=== PATIENT | male | born 1965 | race American Indian/Alaskan Native ===

== ENCOUNTER 2016-11-07 22:34 | Emergency (ER) | payer SELFPAY ==
--- NOTE | 2016-11-07 23:10 | Cat Scan Report ---
FINAL REPORT EXAM: CT HEAD/BRAIN WO CON HISTORY: neuro deficits \T\lt; 6hrs or sx present upon awakening TECHNIQUE: Noncontrast serial axial images from skull base to vertex. PRIORS: None. FINDINGS: There is no mass effect or midline shift. There are no abnormal intra or extra-axial fluid collections. Cortical sulci and lateral ventricles are within normal limits for size and configuration. Basilar cisterns are patent. No acute intracranial hemorrhage is identified. There is an asymmetric hypodense focus in the periventricular white matter adjacent to the body of the right lateral ventricle. Areas of relative hypodensity are seen in white matter of the cerebral hemispheres, bilaterally. Atherosclerotic changes are noted. Visualized paranasal sinuses and mastoid air cells are well aerated. No acute osseous abnormality is identified. IMPRESSION: 1. No abnormal mass or acute intracranial hemorrhage is identified. 2. There is evidence of prior infarct in the periventricular white matter adjacent to the body of the right lateral ventricle. Chronicity is uncertain. There are currently no studies available for direct comparison. 3. Areas of relative hypodensity are seen in the white matter of the cerebral hemispheres. This is a nonspecific finding. It may be related to chronic ischemic change from small vessel disease. 4. If there is concern for acute or subacute infarct, consider MRI with diffusion-weighted imaging for further evaluation.
[2016-11-07 23:40] LABS: BUN/Creatinine Ratio 16.66; Blood Urea Nitrogen 10 mg/dL (9-20); Carbon Dioxide 31 mmol/L (22-30); Glucose 154 mg/dL (75-100)
[2016-11-07 23:41] LABS: Anion Gap 18 mmol/L; Chloride 95.8 mmol/L (98-107); Potassium 3.1 mmol/L (3.6-5.0); Sodium 142 mmol/L (137-145)
[2016-11-07 23:55] LABS: Basophils % (Auto) 0.3 % (0.0-1.8); Eosinophils % (Auto) 1.3 % (0.0-4.3); Hematocrit 42.3 % (35.5-45.6); Hemoglobin 14.4 gm/dl (11.8-15.2); Mean Corpuscular HGB Conc 34 % (32-34); Mean Corpuscular Hemoglobin 32 pg (28-32); Mean Corpuscular Volume 94 fl (84-94); Platelet Count 227 K/mm3 (140-440); Red Blood Count 4.51 M/mm3 (3.65-5.03); Red Cell Distribution Width 13.9 % (13.2-15.2); White Blood Count 9.3 K/mm3 (4.5-11.0)
[2016-11-08 00:01] LABS: INR 0.98 (0.87-1.13)
[2016-11-08 00:02] LABS: Partial Thromboplastin Time 31.5 Sec. (24.2-36.6)
[2016-11-08] MEDS ORDERED: REGLAN IV ONE (00:02)
[2016-11-08] MEDS ORDERED: BENADRYL IV ONE (00:02)
[2016-11-08] MEDS ORDERED: MAGNESIUM SULFATE 2GM/50ML 2 GM/50 ML BAG IV ONE (00:02)
[2016-11-08] MEDS ORDERED: DILAUDID IV ONE (00:02)
[2016-11-08] MEDS ORDERED: NACL 0.9% 1000 ML 1,000 ML IV ONE (00:02)
--- NOTE | 2016-11-08 00:05 | Emergency Department Report ---
ED General Adult HPI - General Chief complaint: Headache Stated complaint: ABRAMS Time Seen by Provider: 11/07/16 23:46 Source: patient, RN notes reviewed, old records reviewed Mode of arrival: Ambulatory Limitations: No Limitations - History of Present Illness Initial comments: This is a 51-year-old male. He is previously unknown to me. Patient has a medical history of stroke, diabetes, hypertension. The patient had a CT angiogram performed at [facility] august 21 2016. The angiogram was negative for occlusion, aneurysm, dissection. It did note a left proximal cavernous ICA likely atherosclerotic related short segment 50% stenosis. 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 The patient presents to the ER with a headache. The headache has been present for over a week. It is in the right temporal region, and right neck. The headache is not sudden or thunderclap in nature. It did not reach maximal intensity within an hour. It is similar to prior headaches only more intense. Patient reports the headache is typically worse at night. There is no neck stiffness. No fevers. No sore throat. No loss of vision. No vomiting. No abdominal pain. No chest pain. -: Gradual Location: head, neck Quality: other (as per history of present illness) Consistency: other (as per history of present illness) Improves with: other (History of present illness) Worsens with: other (as per history of present illness) Associated Symptoms: headaches - Related Data Previous Rx's Medication Instructions Recorded Last Taken Type Magnesium Oxide [Mag-Ox] 400 mg PO QDAY #10 tablet 11/08/16 Unknown Rx Potassium Chloride [Klor-Con] 20 meq PO QDAY #10 packet 11/08/16 Unknown Rx Allergies Allergy/AdvReac Type Severity Reaction Status Date / Time No Known Allergies Allergy Verified 11/07/16 22:39 ED Review of Systems ROS: Stated complaint: ABRAMS Other details as noted in HPI Constitutional: denies: fever Eyes: denies: eye discharge ENT: denies: epistaxis Respiratory: denies: cough Cardiovascular: denies: chest pain Gastrointestinal: denies: abdominal pain Genitourinary: as per HPI Musculoskeletal: as per HPI Skin: as per HPI Neurological: headache. denies: weakness, numbness, paresthesias, confusion, abnormal gait, vertigo ED Past Medical Hx - Past Medical History Previous Medical History?: Yes Hx Hypertension: Yes Hx CVA: Yes Hx Diabetes: Yes - Surgical History Past Surgical History?: No - Social History Smoking Status: Current Every Day Smoker Substance Use Type: Alcohol - Medications Home Medications: Home Medications Medication Instructions Recorded Confirmed Last Taken Type Magnesium Oxide [Mag-Ox] 400 mg PO QDAY #10 tablet 11/08/16 Unknown Rx Potassium Chloride [Klor-Con] 20 meq PO QDAY #10 packet 11/08/16 Unknown Rx ED Physical Exam - General Limitations: No Limitations General appearance: alert, in no apparent distress - Head Head exam: Present: atraumatic, normocephalic - Eye Eye exam: Present: normal appearance, PERRL, EOMI, other (visual acuity intact to finger counting, color perception, reading at a close distance). Absent: nystagmus - ENT ENT exam: Present: normal exam, normal orophraynx, mucous membranes moist, normal external ear exam - Neck Neck exam: Present: normal inspection, full ROM (negative jolt accentuation test ). Absent: tenderness, meningismus - Respiratory Respiratory exam: Present: normal lung sounds bilaterally. Absent: respiratory distress, wheezes, rales, rhonchi, stridor, chest wall tenderness, accessory muscle use, decreased breath sounds, prolonged expiratory - Cardiovascular Cardiovascular Exam: Present: regular rate, normal rhythm, normal heart sounds. Absent: bradycardia, tachycardia, irregular rhythm, systolic murmur, diastolic murmur, rubs, gallop - GI/Abdominal GI/Abdominal exam: Present: soft, normal bowel sounds. Absent: distended, tenderness, guarding, rebound, rigid, pulsatile mass - Rectal Rectal exam: Present: deferred - Extremities Exam Extremities exam: Present: normal inspection, full ROM, normal capillary refill. Absent: tenderness, pedal edema, joint swelling, calf tenderness - Back Exam Back exam: Present: normal inspection, full ROM. Absent: tenderness, CVA tenderness (R), CVA tenderness (L), muscle spasm, paraspinal tenderness, vertebral tenderness - Neurological Exam Neurological exam: Present: alert, oriented X3, normal gait, other (Extraocular movements intact. Tongue midline. No facial droop. Facial sensation intact to light touch in the V1, V2, V3 distribution bilaterally. 5 and 5 strength in 4 extremities.. Sensation is intact to light touch in 4 extremities.). Absent : motor sensory deficit - Psychiatric Psychiatric exam: Present: normal affect, normal mood - Skin Skin exam: Present: warm, dry, intact, normal color. Absent: rash ED Course Vital Signs 11/07/16 11/07/16 11/07/16 22:39 23:01 23:10 Temperature 98.3 F Pulse Rate 73 71 83 Respiratory 22 19 Rate Blood Pressure 161/96 151/78 Blood Pressure 151/78 [Left] O2 Sat by Pulse 100 100 Oximetry 11/07/16 11/07/16 11/07/16 23:20 23:30 23:40 Temperature Pulse Rate 79 73 76 Respiratory 13 15 22 Rate Blood Pressure 151/78 151/78 151/78 Blood Pressure [Left] O2 Sat by Pulse 100 100 97 Oximetry 11/07/16 11/08/16 11/08/16 23:50 00:00 00:10 Temperature Pulse Rate 71 71 74 Respiratory 14 14 11 L Rate Blood Pressure 151/78 163/87 163/87 Blood Pressure [Left] O2 Sat by Pulse 100 98 100 Oximetry 11/08/16 00:20 Temperature Pulse Rate 77 Respiratory 13 Rate Blood Pressure 163/87 Blood Pressure [Left] O2 Sat by Pulse 98 Oximetry - Reevaluation(s) Reevaluation #1: 11/08/16 00:25 differential diagnosis: Migraine headache, cluster headache, tension headache, arterial insufficiency Assessment and plan: 51-year-old male with nonspecific right-sided headache as social with neck discomfort. He is afebrile with reassuring vital signs, has a GCS of 15, with an NIH score is 0, no obvious visual field cuts on my examination, visual acuity intact, neck is supple, and unremarkable pharyngeal examination. Given his nonspecific CT scan, clinical history, we will obtain a CT angiogram to exclude dissection, thrombus. By the patient's history, I do not suspect subarachnoid hemorrhage, as the headache is not sudden or thunderclap in nature, it is primarily nocturnal. 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 He is following up with her primary care doctor for this as an outpatient. Laboratory studies are unremarkable with exception of mild hypokalemia. A noncontrast CT scan was negative for acute disease. given history I am not concerned about recurrent ischemic cva. 11/08/16 00:28 Reevaluation #2: 11/08/16 02:07 patient is noted to be hypokalemic and hypomagnesemic. These were repleted. CT angiogram negative for significant disease disease. Patient resting comfortably. Repeat neurologic examination unremarkable. The patient feels improved. The patient will be discharged with magnesium supplementation, potassium supplementation, instructions to follow-up with his private neurologist within the next week. Return precautions are reviewed. 11/08/16 02:25 ED Medical Decision Making - Lab Data Result diagrams: 11/07/16 23:09 11/07/16 23:09 Vital Signs 11/07/16 11/07/16 22:39 23:10 Temperature 98.3 F Pulse Rate 73 75 Respiratory 22 14 Rate Blood Pressure 161/96 Blood Pressure 151/78 [Left] O2 Sat by Pulse 100 100 Oximetry Lab Results 11/07/16 11/07/16 11/07/16 Range/Units 23:09 23:09 23:09 WBC 9.3 (4.5-11.0) K/mm3 RBC 4.51 (3.65-5.03) M/mm3 Hgb 14.4 (11.8-15.2) gm/dl Hct 42.3 (35.5-45.6) % MCV 94 (84-94) fl MCH 32 (28-32) pg MCHC 34 (32-34) % RDW 13.9 (13.2-15.2) % Plt Count 227 (140-440) K/mm3 Lymph % (Auto) 46.4 H (13.4-35.0) % Yates % (Auto) 7.2 (0.0-7.3) % Eos % (Auto) 1.3 (0.0-4.3) % Baso % (Auto) 0.3 (0.0-1.8) % Lymph # 4.3 (1.2-5.4) K/mm3 Yates # 0.7 (0.0-0.8) K/mm3 Eos # 0.1 (0.0-0.4) K/mm3 Baso # 0.0 (0.0-0.1) K/mm3 Seg Neutrophils % 44.8 (40.0-70.0) % Seg Neutrophils # 4.2 (1.8-7.7) K/mm3 PT 12.9 (12.2-14.9) Sec. INR 0.98 (0.87-1.13) APTT 31.5 (24.2-36.6) Sec. Thrombin Time (15.1-19.6) Sec. Sodium 142 (137-145) mmol/L Potassium 3.1 L (3.6-5.0) mmol/L Chloride 95.8 L (98-107) mmol/L Carbon Dioxide 31 H (22-30) mmol/L Anion Gap 18 mmol/L BUN 10 (9-20) mg/dL Creatinine 0.6 L (0.8-1.5) mg/dL Estimated GFR > 60 ml/min BUN/Creatinine Ratio 16.66 % Glucose 154 H (75-100) mg/dL Calcium 9.0 (8.4-10.2) mg/dL Troponin T < 0.010 (0.00-0.029) ng/mL 11/07/16 Range/Units 23:09 WBC (4.5-11.0) K/mm3 RBC (3.65-5.03) M/mm3 Hgb (11.8-15.2) gm/dl Hct (35.5-45.6) % MCV (84-94) fl MCH (28-32) pg MCHC (32-34) % RDW (13.2-15.2) % Plt Count (140-440) K/mm3 Lymph % (Auto) (13.4-35.0) % Yates % (Auto) (0.0-7.3) % Eos % (Auto) (0.0-4.3) % Baso % (Auto) (0.0-1.8) % Lymph # (1.2-5.4) K/mm3 Yates # (0.0-0.8) K/mm3 Eos # (0.0-0.4) K/mm3 Baso # (0.0-0.1) K/mm3 Seg Neutrophils % (40.0-70.0) % Seg Neutrophils # (1.8-7.7) K/mm3 PT (12.2-14.9) Sec. INR (0.87-1.13) APTT (24.2-36.6) Sec. Thrombin Time 14.1 L (15.1-19.6) Sec. Sodium (137-145) mmol/L Potassium (3.6-5.0) mmol/L Chloride (98-107) mmol/L Carbon Dioxide (22-30) mmol/L Anion Gap mmol/L BUN (9-20) mg/dL Creatinine (0.8-1.5) mg/dL Estimated GFR ml/min BUN/Creatinine Ratio % Glucose (75-100) mg/dL Calcium (8.4-10.2) mg/dL Troponin T (0.00-0.029) ng/mL - EKG Data -: EKG Interpreted by Me EKG shows normal: sinus rhythm, axis, intervals, QRS complexes, ST-T waves - EKG Data When compared to previous EKG there are: previous EKG unavailable - Radiology Data Radiology results: report reviewed, image reviewed Noncontrast CT scan: No abnormal mass or intracranial hemorrhage noted. Evidence of prior infarct noted in the periventricular white matter adjacent to the body of the right lateral ventricle. Chronicity is uncertain. Areas of hypodensity noted in the white matter of the cerebral hemispheres, nonspecific finding. May related to chronic ischemic change small vessel disease. CT angiogram negative for acute disease, chronic findings noted Critical care attestation.: If time is entered above; I have spent that time in minutes in the direct care of this critically ill patient, excluding procedure time. ED Disposition Clinical Impression: Headache, Hypokalemia, Hypomagnesemia Disposition: DISCHARGED TO HOME OR SELFCARE Is pt being admited?: No Does the pt Need Aspirin: No Condition: Stable Instructions: Acute Headache (ED) Additional Instructions: Follow up with your primary neurologist within the next 7-[address] scans did not demonstrate any new findings when compared to her old CT scans. Take the potassium and magnesium supplementation as directed. Take acetaminophen or ibuprofen as needed [id number] for pain. If you take metformin, do not take it for the next 48 hours. Return to the ER right away with new pain, worsened pain, migration of pain, fever, chills, confusion, intractable nausea or vomiting, extremity weakness, extremity numbness, bladder or bowel retention/incontinence. Prescriptions: Magnesium Oxide [Mag-Ox] 400 mg PO QDAY #10 tablet Potassium Chloride [Klor-Con] 20 meq PO QDAY #10 packet Referrals: PRIMARY CARE, [Primary Care Provider] - 3-5 Days KOZINN,TYSON A, MD [Staff Physician] - 3-5 Days CASSANDRA JEAN MD [Staff Physician] - 3-5 Days
[2016-11-08] MEDS ORDERED: NACL ONE (00:17)
[2016-11-08] MEDS ORDERED: K-DUR PO ONE (00:21)
[2016-11-08] MEDS: KCL 10MEQ/100ML 10 MEQ/100 ML BAG IV SCH ×2 (01:16→02:35)
[2016-11-08 01:23] VITALS: BP 163/87
--- NOTE | 2016-11-08 01:49 | Cat Scan Report ---
FINAL REPORT PROCEDURE: CT ANGIO HEAD TECHNIQUE: Computerized tomographic angiography of the head was performed after the IV injection of iodinated nonionic contrast including image processing. The image data was postprocessed using 2-dimensional multiplanar reformatted (MPR) and 3-dimensional (MIP and/or volume rendered) techniques. HISTORY: chacon hx of cva COMPARISON: No prior studies are available for comparison. FINDINGS: Cerebrum: No evidence of hemorrhage, acute ischemia or mass. Cerebellum: No evidence of hemorrhage, acute ischemia or mass. Subarachnoid spaces and ventricles: Normal. Intracranial vessels: Carotid siphon: Normal. Anterior cerebral: There is an azygos anterior cerebral artery. This is a normal variation. Middle cerebral: Normal. Posterior cerebral:Normal. Vertebral arteries including basilar: The left vertebral artery is dominant. Aneurysms: None. Dural sinuses: Normal. IMPRESSION: There is no intracranial arterial stenosis, thrombosis, dissection or aneurysm. There is no vascular malformation. The dural sinuses are patent.
--- NOTE | 2016-11-08 01:52 | Cat Scan Report ---
FINAL REPORT PROCEDURE: CT ANGIO NECK TECHNIQUE: Computerized tomographic angiography of the neck was performed after the IV injection of iodinated nonionic contrast including image processing. The image data was postprocessed using 2-dimensional multiplanar reformatted (MPR) and 3-dimensional (MIP and/or volume rendered) techniques. HISTORY: chacon hx of cva COMPARISON: No prior studies are available for comparison. Note: Assessment of carotid artery stenosis is based on measurement of the distal internal carotid artery diameter as the denominator for stenosis calculations and the [place] Symptomatic Carotid Endarterectomy Trial (NASCET) stenosis criteria . CPT 3100F FINDINGS: Sinuses: Normal . Non vascular cervical structures: There is a subcutaneous cyst in the left submandibular region measuring 18 x 23 millimeters.. Aortic arch: Normal . Right carotid artery: Normal . Left carotid artery: There is calcified plaque at the left carotid bulb. There is no significant stenosis.. Vertebral arteries: The left vertebral artery is dominant. The right vertebral artery is small in caliber but patent.. IMPRESSION: There is calcified plaque at the left carotid bulb without stenosis. There is no carotid dissection. There is no thrombosis. The left vertebral artery is dominant.
== END 2016-11-08 02:36 | disposition home or self-care (01) ==
LOC: ED 22:34
DX: R51 Headache (principal); E87.6 Hypokalemia; E83.42 Hypomagnesemia; I10 Essential (primary) hypertension; E11.9 Type 2 diabetes mellitus without complications; F17.200 Nicotine dependence, unspecified, uncomplicated; Z86.73 Personal history of transient ischemic attack (TIA), and cerebral infarction without residual deficits
CPT/HCPCS: 36415; 70450; 70496; 70498; 80048; 82962; 83735; 84484; 85025; 85610; 85670; 85730; 93005; 93010; 96361; 96374; 96375; 99285; J1170; J1200; J2765; J2930; J3475; J3480; J7030; Q9967

== ENCOUNTER 2022-02-25 10:19 | Emergency (ER) | payer SELFPAY ==
[2022-02-25 13:27] LABS: Hematocrit 36.8 % (35.5-45.6); Hemoglobin 12.6 gm/dl (11.8-15.2); Mean Corpuscular HGB Conc 34 % (32-34); Mean Corpuscular Volume 93 fl (84-94); Platelet Count 250 K/mm3 (140-440); Red Blood Count 3.97 M/mm3 (3.65-5.03); Red Cell Distribution Width 14.7 % (13.2-15.2)
[2022-02-25 13:43] LABS: Alanine Aminotransferase 11 units/L (7-56); Albumin 4.4 g/dL (3.9-5); Blood Urea Nitrogen 10 mg/dL (9-20); Calcium 9.3 mg/dL (8.4-10.2); Hemolysis Index 15
[2022-02-25 13:48] LABS: BUN/Creatinine Ratio 14
--- NOTE | 2022-02-25 14:56 | Ultrasound Report ---
LIMITED RUQ ABDOMINAL ULTRASOUND INDICATION: ABD PAIN. COMPARISON: No relevant prior imaging study available. FINDINGS: Pancreas: Visualized portions show no significant abnormality. Abdominal Aorta: No significant abnormality. IVC: No significant abnormality. Liver: The liver measures 14.3 cm in length. No significant abnormality. Normal hepatopedal blood fl ow in the main portal vein. Gallbladder: No significant abnormality. Bile ducts: There is mild dilatation of the common bile duct. Common bile duct measures 7 mm. Right kidney: The right kidney measures 10.3 cm in length. The right kidney is slightly echogenic. Th ere is a 2.9 cm cyst with thin internal septation near the lower pole. No hydronephrosis or mass.. Free fluid: None. Additional Findings: None. IMPRESSION: The common bile duct is mildly dilated measuring 7 mm but no cholelithiasis is appreciated. If choled ocholithiasis is suspected, MRCP could be obtained. Slightly echogenic right kidney consistent with medical renal disease. Bosniak class II cyst in the right kidney. Signer Name: Yg Marsh Jr, MD Signed: 02/25/2022 2:52 PM Workstation Name: [id number]
--- NOTE | 2022-02-25 14:56 | Emergency Department Report ---
ED Abdominal Pain HPI - General Chief Complaint: Medical Clearance Stated Complaint: DIABETES PUI?: No Time Seen by Provider: 02/25/22 14:49 Source: patient Mode of arrival: Ambulatory Limitations: No Limitations - History of Present Illness Severity scale (0 -10): 0 - Related Data Previous Rx's Medication Instructions Recorded Last Taken Type Magnesium Oxide [Mag-Ox] 400 mg PO QDAY #10 tablet 11/08/16 Unknown Rx Potassium Chloride [Klor-Con] 20 meq PO QDAY #10 packet 11/08/16 Unknown Rx Allergies Allergy/AdvReac Type Severity Reaction Status Date / Time No Known Allergies Allergy Verified 11/07/16 22:39 ED Review of Systems ROS: Stated complaint: DIABETES Other details as noted in HPI Comment: All other systems reviewed and negative ED Past Medical Hx - Past Medical History Previous Medical History?: Yes Hx Hypertension: Yes Hx CVA: Yes Hx Heart Attack/AMI: No Hx Congestive Heart Failure: No Hx Diabetes: Yes Hx Deep Vein Thrombosis: No Hx Pulmonary Embolism: No Hx GERD: No Hx Liver Disease: No Hx Renal Disease: No Hx of Cancer: No Hx Sickle Cell Disease: No Hx Arthritis: No Hx Headaches / Migraines: No Hx Seizures: No Hx Kidney Stones: No Hx Psychiatric Treatment: No Hx Asthma: No Hx COPD: No Hx Tuberculosis: No Hx Dementia: No Hx HIV: No - Surgical History Past Surgical History?: No - Family History Family history: no significant - Social History Smoking Status: Current Every Day Smoker Substance Use Type: Alcohol (LAST 4 M AGO) - Medications Home Medications: Home Medications Medication Instructions Recorded Confirmed Last Taken Type Magnesium Oxide [Mag-Ox] 400 mg PO QDAY #10 tablet 11/08/16 Unknown Rx Potassium Chloride [Klor-Con] 20 meq PO QDAY #10 packet 11/08/16 Unknown Rx ED Physical Exam - General Limitations: No Limitations General appearance: alert, in no apparent distress - Head Head exam: Present: atraumatic, normocephalic - Eye Eye exam: Present: normal appearance - ENT ENT exam: Present: mucous membranes moist - Neck Neck exam: Present: normal inspection - Respiratory Respiratory exam: Present: normal lung sounds bilaterally. Absent: respiratory distress - Cardiovascular Cardiovascular Exam: Present: regular rate, normal rhythm. Absent: systolic murmur, diastolic murmur, rubs, gallop - GI/Abdominal GI/Abdominal exam: Present: soft, normal bowel sounds - Rectal Rectal exam: Present: deferred - Extremities Exam Extremities exam: Present: normal inspection - Back Exam Back exam: Present: normal inspection - Neurological Exam Neurological exam: Present: alert, oriented X3 - Psychiatric Psychiatric exam: Present: normal affect, normal mood - Skin Skin exam: Present: warm, dry, intact, normal color. Absent: rash ED Course Vital Signs 02/25/22 11:15 Temperature 98.3 F Pulse Rate 76 Respiratory 16 Rate Blood Pressure 146/100 [Right] O2 Sat by Pulse 100 Oximetry ED Medical Decision Making - Lab Data Result diagrams: 02/25/22 12:42 02/25/22 12:42 - Radiology Data Radiology results: report reviewed, image reviewed - Medical Decision Making Lab Results 02/25/22 02/25/22 02/25/22 Range/Units 12:42 12:42 15:54 WBC 7.0 (4.5-11.0) K/mm3 RBC 3.97 (3.65-5.03) M/mm3 Hgb 12.6 (11.8-15.2) gm/dl Hct 36.8 (35.5-45.6) % MCV 93 (84-94) fl MCH 32 (28-32) pg MCHC 34 (32-34) % RDW 14.7 (13.2-15.2) % Plt Count 250 (140-440) K/mm3 Sodium 140 (137-145) mmol/L Potassium 3.8 (3.6-5.0) mmol/L Chloride 101.7 (98-107) mmol/L Carbon Dioxide 25 (22-30) mmol/L Anion Gap 17 mmol/L BUN 10 (9-20) mg/dL Creatinine 0.7 L (0.8-1.3) mg/dL Estimated GFR > 60 ml/min BUN/Creatinine Ratio 14 % Glucose 154 H (75-100) mg/dL POC Glucose 85 (70-105) mg/dL Calcium 9.3 (8.4-10.2) mg/dL Total Bilirubin 0.20 (0.1-1.2) mg/dL AST 16 (5-40) units/L ALT 11 (7-56) units/L Alkaline Phosphatase 93 (35-129) units/L Total Protein 6.6 (6.3-8.2) g/dL Albumin 4.4 (3.9-5) g/dL Albumin/Globulin Ratio 2.0 % Lipase 142 H (13-60) units/L Vital Signs 02/25/22 11:15 Temperature 98.3 F Pulse Rate 76 Respiratory 16 Rate Blood Pressure 146/100 [Right] O2 Sat by Pulse 100 Oximetry Critical care attestation.: If time is entered above; I have spent that time in minutes in the direct care of this critically ill patient, excluding procedure time. ED Disposition Clinical Impression: Gall bladder disease Disposition: HOME / SELF CARE / HOMELESS Is pt being admited?: No Does the pt Need Aspirin: No Condition: Stable Instructions: Gallbladder Eating Plan Additional Instructions: see attached information on diet SEE PCP [facility] REFERRAL BELOW diabetic diet you will need a GI work up- the PCP can send you to one for monitoring your gall bladder drink a lot of water avoid alcohol control you blood sugar Referrals: GHISLAINE YANEZ MD [Primary Care Provider] - 3-5 Days Time of Disposition: 17:39
[2022-02-25] MEDS ORDERED: PIPERACIL/TAZOBACTA 4.5/NS 100 4.5 GM/100 ML VIAL IV ONE (15:06)
[2022-02-25] MEDS ORDERED: SODIUM CHLORIDE 0.9% 1000 ML 1,000 ML IV ONE (15:06)
[2022-02-25] MEDS ORDERED: ONDANSETRON 4 MG/2 ML INJ IV ONE (15:06)
--- NOTE | 2022-02-25 18:08 | Cat Scan Report ---
CT ABDOMEN AND PELVIS WITH CONTRAST INDICATION / CLINICAL INFORMATION: ABD PAIN. TECHNIQUE: Axial CT images were obtained through the abdomen and pelvis after [address]. [address] scans at this location are performed using CT dose reduction for ALARA by means of automated exposur e control. COMPARISON: Ultrasound same day. FINDINGS: LOWER CHEST: No significant abnormality. LIVER: No significant abnormality. GALLBLADDER: No significant abnormality. BILE DUCTS: Dilation of the common bile duct to 8-9 mm. Proximal pancreatic duct dilation to 5 mm. A component of pancreas divisum and is evident. PANCREAS: No focal parenchymal abnormality. SPLEEN: No significant abnormality. ADRENALS: 3.3 cm left adrenal nodule. RIGHT KIDNEY / URETER: 3 cm cyst. LEFT KIDNEY / URETER: No significant abnormality. STOMACH / SMALL BOWEL: Distal esophageal thickening for COLON: No significant abnormality. APPENDIX: No significant abnormality. PERITONEUM: No free fluid. No free air. No fluid collection. LYMPH NODES: No significant adenopathy. AORTA / ARTERIES: Advanced atherosclerosis. IVC / VEINS: No significant abnormality. URINARY BLADDER: No significant abnormality. REPRODUCTIVE ORGANS: No significant abnormality. ADDITIONAL FINDINGS: None. SKELETAL SYSTEM: No significant abnormality. IMPRESSION: 1. CBD dilation to 8 mm in the setting of proximal pancreatic ductal dilation and a component of panc reas divisum. While no discrete pancreatic or ampullary mass is demonstrated by CT, follow-up MRCP is recommended to complete the evaluation. 2. Left adrenal nodule, indeterminate, possibly a lipid poor adenoma. When above recommended MRI is p erformed, additional in and out of phase adrenal protocol sequences are recommended to fully evaluate . 3. Distal esophageal thickening supportive of esophagitis. 4. Ancillary findings as described. Signer Name: Lukas Lofton MD Signed: 02/25/2022 6:04 PM Workstation Name: [email or web address]
[2022-02-25 18:43] LABS: WBC,Urine < 1.0 /HPF (0.0-6.0)
[2022-02-25 18:46] LABS: Color,Urine Yellow (Yellow)
[2022-02-25] MEDS ORDERED: ASPIRIN 81 MG TAB CHEW PO ONE (18:56)
[2022-02-25 19:10] VITALS: BP 138/90
== END 2022-02-25 19:10 | disposition home or self-care (01) ==
LOC: ED 10:19
DX: K82.9 Disease of gallbladder, unspecified (principal); I10 Essential (primary) hypertension; E11.9 Type 2 diabetes mellitus without complications; F17.200 Nicotine dependence, unspecified, uncomplicated; Z72.89 Other problems related to lifestyle; Z79.899 Other long term (current) drug therapy
CPT/HCPCS: 36415; 74177; 76705; 80053; 81001; 82962; 83690; 85027; 96365; 96375; 99284; J2405; J2543; J7030; Q9967